=== PATIENT | male | born 1980 | race Caucasian/White ===

== ENCOUNTER 2020-01-15 06:19 | Emergency (ER) | payer MEDICAID ==
[~2020-01-15] VITALS: Ht 182.9 cm; Wt 104.3 kg
[2020-01-15 06:40] VITALS: BP_SYST 123
--- NOTE | 2020-01-15 06:40 | NUR ---
Pt ambulatory to bed 4 for evaluation
[2020-01-15] MEDS ORDERED: QUET50TA PO (06:50)
[2020-01-15] MEDS ORDERED: WELSR150 PO (06:50)
--- NOTE | 2020-01-15 06:50 | NUR ---
ELI Morrissey at bedside examining patient.
--- NOTE | 2020-01-15 06:56 | NUR ---
Pt presents to the ER c/o abdominal pain/ pressure x 4days. Pt states pain has worsen x today radiating to the lower back w/ urinary dribbling. Denies taking any pain medication.
[2020-01-15] MEDS ORDERED: KETOROLAC TROMETHAMINE 30 MG VIAL IM ONE (07:00)
--- NOTE | 2020-01-15 07:07 | NUR ---
Report given to GEN Alcocer, for continuation of care.
[2020-01-15 07:08] LABS: BILIRUBIN,URINE NEGATIVE (NEGATIVE); BLOOD, URINE 3+ (NEGATIVE); COLOR,URINE YELLOW (YELLOW); GLUCOSE,URINE NEGATIVE (NEGATIVE); KETONES,URINE NEGATIVE (NEGATIVE); LEUKOCYTE ESTERASE ,URINE NEGATIVE (NEGATIVE); NITRITE, URINE NEGATIVE (NEGATIVE); PH,URINE 5.5 (5.0-8.0); PROTEIN URINE NEGATIVE (NEGATIVE); UROBILINOGEN,URINE 0.2 (0.2-1.0)
[2020-01-15 07:09] LABS: CLARITY/URINE SLIGHTLY HAZY (CLEAR)
--- NOTE | 2020-01-15 07:10 | NUR ---
Administered Toradol IM as ordered by Dr. George. Patient tolerated the medications well. See eMAR for details.
[2020-01-15 07:22] LABS: BACTERIA,URINE RARE /HPF (None Seen); MUCUS,URINE 1+ /LPF (None Seen); RBC,URINE 20-50 /HPF (0-3); WBC,URINE 0-3 /HPF (0-3)
[2020-01-15 07:25] LABS: BASOPHILS # (AUTO) 0.1 K/uL (0.0-0.2); BASOPHILS % (AUTO) 0.8 % (0.0-2.0); EOSINOPHILS # (AUTO) 0.3 K/uL (0.0-0.4); EOSINOPHILS % (AUTO) 3.6 % (0.0-4.0); HEMATOCRIT 50.2 % (36-54); HEMOGLOBIN 17.3 g/dL (14.0-18.0); LYMPHOCYTES # (AUTO) 2.3 K/uL (1.0-5.5); LYMPHOCYTES % (AUTO) 30.2 % (20.5-51.5); MEAN CORPUSCULAR HEMOGLOBIN 30 pg (27-31); MEAN CORPUSCULAR HGB CONC 35 % (32-36); MEAN CORPUSCULAR VOLUME 88 fL (79.0-98.0); MONOCYTES # (AUTO) 0.7 K/uL (0.0-1.0); MONOCYTES % (AUTO) 9.2 % (1.7-9.3); NEUTROPHILS # (AUTO) 4.4 K/uL (1.8-7.7); NEUTROPHILS % (AUTO) 56.2 % (40.0-70.0); PLATELET COUNT (AUTO) 260 K/uL (130-430); RED BLOOD CELL COUNT(AUTO) 5.71 MIL/uL (4.2-6.2); RED CELL DISTRIBUTION WIDTH 13.3 % (9.0-15.0); WHITE BLOOD COUNT (AUTO) 7.7 K/uL (4.8-10.8)
--- NOTE | 2020-01-15 07:25 | NUR ---
Patient is taken to CT via gurney, in stable condition.
[2020-01-15 07:41] LABS: CALCIUM 8.5 mg/dL (8.4-11.0); CREATININE 1.06 mg/dL (0.55-1.30)
[2020-01-15 07:47] LABS: ALBUMIN 3.7 g/dL (3.4-4.8); TOTAL BILIRUBIN 0.5 mg/dL (0.0-1.0)
--- NOTE | 2020-01-15 08:26 | NUR ---
ER MD discussed with the patient the results and treatment provided. Patient given written and verbal discharge instructions and verbalized understanding. Opportunity for questions provided and answered. Patient in stable condition, last set of vital signs within normal limits, pain scale 0/10, speaking in full sentences and ambulated with a steady gait upon discharge. ID arm band removed. Rx of Mineral Oil and Ibuprofen given. Patient educated on pain management and to follow up with PMD. Medication side effect fact sheet provided.
[2020-01-15 08:32] VITALS: BP_SYST 123
[2020-01-17 00:06] LABS: CHLAMYDIA TRACHOMATIS NAA Negative (Negative); NEISSERIA GONORRHOEAE NAA Negative (Negative)
== END 2020-01-15 08:26 | disposition home or self-care (01) ==
LOC: SED 06:19
DX: N20.0 Calculus of kidney (principal); K59.00 Constipation, unspecified; F43.10 Post-traumatic stress disorder, unspecified
CPT/HCPCS: 36415; 74176; 80053; 81000; 83690; 85025; 87491; 87591; 96372; 99284; J1885

== ENCOUNTER 2022-08-11 09:01 | Emergency (ER) | payer MEDICAID ==
[~2022-08-11] VITALS: Ht 182.9 cm; Wt 108.9 kg
[2022-08-11 09:01] VITALS: BP_SYST 151
[~2022-08-11 09:01] MED LIST: QUET50TA PO; WELSR150 PO
--- NOTE | 2022-08-11 09:08 | NUR ---
Patient triaged and placed in waiting room. VSS and patient appears in no acute distress at this time. Accompanied by SELF, awaiting available bed, and MD notified of need for MSE.
--- NOTE | 2022-08-11 09:20 | NUR ---
PT STATES HE HAS LEFT SIDED FLANK PAIN THAT RADIATES TO LEFT LOWER ABD PAIN TO SCROTUM. DENIES N/V, DENIES DIARRHEA
--- NOTE | 2022-08-11 09:22 | NUR ---
PT IS FROM [facility], [facility] 30 DAYS OFF ALL DRUGS. PT STATES HE USED TO DO METH, MARIJUANA AND ETOH. PT DEMANDING NO NARCOTICS
--- NOTE | 2022-08-11 09:46 | NUR ---
BROUGHT BACK TO BED #7 REPORT GIVEN TO NURSE
[2022-08-11 10:36] LABS: BILIRUBIN,URINE NEGATIVE (NEGATIVE); BLOOD, URINE 3+ (NEGATIVE); CLARITY/URINE CLOUDY (CLEAR); COLOR,URINE YELLOW (YELLOW); GLUCOSE,URINE NEGATIVE (NEGATIVE); KETONES,URINE NEGATIVE (NEGATIVE); LEUKOCYTE ESTERASE ,URINE NEGATIVE (NEGATIVE); NITRITE, URINE NEGATIVE (NEGATIVE); PH,URINE 7.5 (5.0-8.0); PROTEIN URINE 1+ (NEGATIVE); UROBILINOGEN,URINE 0.2 (0.2-1.0)
[2022-08-11 10:36] LABS: BASOPHILS # (AUTO) 0.1 K/uL (0.0-0.2); BASOPHILS % (AUTO) 0.5 % (0.0-2.0); EOSINOPHILS # (AUTO) 0.1 K/uL (0.0-0.4); HEMATOCRIT 49.7 % (36-54); HEMOGLOBIN 16.8 g/dL (14.0-18.0); LYMPHOCYTES # (AUTO) 2.2 K/uL (1.0-5.5); LYMPHOCYTES % (AUTO) 15.7 % (20.5-51.5); MEAN CORPUSCULAR HEMOGLOBIN 29 pg (27-31); MEAN CORPUSCULAR HGB CONC 34 % (32-36); MEAN CORPUSCULAR VOLUME 87 fL (79.0-98.0); MONOCYTES # (AUTO) 0.9 K/uL (0.0-1.0); MONOCYTES % (AUTO) 6.3 % (1.7-9.3); NEUTROPHILS # (AUTO) 10.9 K/uL (1.8-7.7); NEUTROPHILS % (AUTO) 76.5 % (40.0-70.0); PLATELET COUNT (AUTO) 324 K/uL (130-430); RED BLOOD CELL COUNT(AUTO) 5.72 MIL/uL (4.2-6.2); RED CELL DISTRIBUTION WIDTH 13.2 % (9.0-15.0); WHITE BLOOD COUNT (AUTO) 14.3 K/uL (4.8-10.8)
[2022-08-11] MEDS ORDERED: KETOROLAC TROMETHAMINE 30 MG VIAL IVP ONE (10:45)
[2022-08-11] MEDS ORDERED: NACL 0.9% 1,000 ML IV ONE (10:45)
[2022-08-11] MEDS ORDERED: ONDANSETRON HCL 4 MG/2 ML VIAL IVP ONE (10:45)
[2022-08-11 10:51] LABS: CALCIUM 9.1 mg/dL (8.4-11.0); CREATININE 1.28 mg/dL (0.55-1.30)
[2022-08-11 10:58] LABS: TOTAL BILIRUBIN 0.5 mg/dL (0.0-1.0)
--- NOTE | 2022-08-11 11:09 | NUR ---
PT STATES PAIN IS A 0/10, STATES GREAT RELIEF WITH PAIN MEDICATION. FAMILY AT BEDSIDE FOR EVALUATION
[2022-08-11 11:15] VITALS: BP_SYST 151
[2022-08-11] MEDS ORDERED: ONDA-8 TL (11:51)
[2022-08-11] MEDS ORDERED: IBUP-1969 PO (11:51)
[2022-08-11 11:56] LABS: BACTERIA,URINE FEW /HPF (None Seen); RBC,URINE 50-80 /HPF (0-3); WBC,URINE 0-3 /HPF (0-3)
--- NOTE | 2022-08-11 12:23 | NUR ---
Patient given written and verbal discharge instructions and verbalizes understanding. ER MD discussed with patient the results and treatment provided. Patient in stable condition. ID arm band removed. IV catheter removed intact and dressing applied, no active bleeding. Rx of IBUPROFEN, ZOFRAN given. Patient educated on pain management and to follow up with PMD. Pain Scale . Opportunity for questions provided and answered. Medication side effect fact sheet provided.
== END 2022-08-11 12:23 ==
LOC: SED 09:01
DX: N23 Unspecified renal colic (principal); Z79.899 Other long term (current) drug therapy
CPT/HCPCS: 99284; 74176; 96374; 96361; 96375; 80053; 81000; 83690; 85025; 36415; 76376; J1885; J2405; J7030